=== PATIENT | male | born 2000 | race Caucasian/White ===

== ENCOUNTER 2022-03-05 10:22 | Outpatient (CLI) | payer BC, SELFPAY ==
--- NOTE | ~2022-03-05 | US_ITS ---
US breast BI complete 03/05/2022 10:50 Indication: Left breast swelling Procedure: High-resolution complete bilateral breast ultrasound including all 4 quadrants in the suba reolar locations. Comparison: No prior studies for comparison. Findings: Right breast: Normal heterogeneous echotexture without focal solid or cystic mass. Left breast: There the nipple there is a bilobed cyst measuring 12 x 4 x 10 mm with dependent debris. This is located in the subcutaneous tissues. Impression: 1: Subcutaneous left breast mass near the left nipple in the area of palpable concern, likely benign. This may represent a sebaceous cyst. BI-RADS CATEGORY 3-PROBABLY BENIGN FINDING RECOMMENDATION: 6 month follow up recommended. Reviewed, dictated and finalized at location A. Impression: 1: Subcutaneous left breast mass near the left nipple in the area of palpable c oncern, likely benign. This may represent a sebaceous cyst. BI-RADS CATEGORY 3-PROBABLY BENIGN FINDING RECOMMENDATION: 6 month follow up recommended.
== END 2022-03-05 10:23 | disposition home or self-care (01) ==
PROVIDERS: PCP Nurse Practitioner Family; Visit Provider Nurse Practitioner Family
DX: N63.20 Unspecified lump in the left breast, unspecified quadrant (principal)
CPT/HCPCS: 76641

== ENCOUNTER 2022-08-22 09:53 | Emergency (ER) | payer BC, SELFPAY ==
[2022-08-22 09:53] VITALS: BP 133/18; PULSE 84; RESP 16; TEMP 36.6; O2SAT 98
[2022-08-22 09:54] VITALS: BP 133/84; PULSE 84; RESP 16; TEMP 36.6; O2SAT 98
--- NOTE | 2022-08-22 10:20 | ED.GENADULT ---
HPI - General Adult General Chief complaint: Skin/Abscess/Foreign Body Stated complaint: rash Source: patient Mode of arrival: ambulatory Limitations: no limitations History of Present Illness HPI narrative: Patient started with vesicular crusty dried rash his upper lip on the right side of his nares yesterday. Says is painful 5/10 he has taken Tylenol and ibuprofen for the pain. Denies any ear pain problems hearing or seeing. Denies any sore throat. Denies any other symptoms. he has never had these symptoms before. Past medical history noncontributory Related Data Allergies Allergy/AdvReac Type Severity Reaction Status Date / Time azithromycin Allergy Mild Rash Verified 08/22/22 09:57 cefdinir Allergy Mild Rash Verified 08/22/22 09:57 Penicillins Allergy Mild Rash Verified 08/22/22 09:57 Review of Systems Review of Systems: All systems reviewed & are unremarkable except as noted in HPI and below Constitutional: Constitutional: Reports no additional constitutional complaints and Denies fever(s) Eyes: Eyes: Reports no additional eye complaints and Denies change in vision ENT: Reports system reviewed and no additional complaints, except as documented, Denies nasal congestion and Denies sore throat Cardiovascular: Cardiovascular: Reports as per HPI Respiratory: Respiratory: Reports no additional respiratory complaints Gastrointestinal: Gastrointestinal: Reports no additional gastrointestinal complaints Genitourinary: Genitourinary: Reports no additional male genitourinary complaints and Denies genital lesions Musculoskeletal: Musculoskeletal: Reports no additional musculoskeletal complaints Integumentary/Breasts: Skin/Breast: Reports system reviewed and no additional complaints, except as docu and Reports as per HPI Neurologic: Reports system reviewed and no additional complaints, except as documented Exam Const: General: healthy appearing Nutritional Appearance: well nourished Orientation/consciousness: patient oriented x3 Limitations: no limitations Other: White male no apparent distress. Eyes conjunctiva pink sclera nonicteric. Face got vesicular rash of his upper lip. Several of vesicles are in groups. Some over have a superficial ulcerations and have crusted over with serous drainage that is dried. Oropharynx clear with moist mucous membranes. Ears TMs are normal. Hearing is grossly normal. Neck is supple no lymphadenopathy. Lungs are clear And heart is regular rate and rhythm without murmurs gallops or rubs. Skin is otherwise clear. Extremities no cyanosis clubbing or edema. Neurological motor sensory grossly intact. Course Vital Signs Vital signs: Vital Signs Temperature 36.6 C 08/22/22 09:53 Pulse Rate 84 08/22/22 09:53 Respiratory Rate 16 08/22/22 09:53 Blood Pressure 133/18 L 08/22/22 09:53 Pulse Oximetry 98 08/22/22 09:53 Oxygen Delivery Room Air 08/22/22 09:53 Temperature 36.6 C 08/22/22 09:54 Pulse Rate 84 08/22/22 09:54 Respiratory Rate 16 08/22/22 09:54 Blood Pressure 133/84 08/22/22 09:54 Pulse Oximetry 98 08/22/22 09:54 Oxygen Delivery Room Air 08/22/22 09:54 Medical Decision Making MDM Narrative Medical decision making narrative: This is most likely herpes infection it was discussed with him that we would start him on an antiviral valacyclovir 1000 mg 3 times a day for 10 days. And that we also would start him on Bactrim DS twice a day for 7 days to prevent a secondary Bacterial infection if he does not already have 1 now. Differential Diagnosis Differential Diagnosis: impetigo, cellulitis, herpes simplex, herpes zoster, [place] Bowden syndrome. Vital Signs Vital Signs: Vital Signs Temperature 36.6 C 08/22/22 09:53 Pulse Rate 84 08/22/22 09:53 Respiratory Rate 16 08/22/22 09:53 Blood Pressure 133/18 L 08/22/22 09:53 Pulse Oximetry 98 08/22/22 09:53 Oxygen Delivery Room Air 08/22/22 09:53 Tem
== END 2022-08-22 10:47 | disposition home or self-care (01) ==
PROVIDERS: Emergency Provider Emergency Medicine; PCP Nurse Practitioner Family
DX: B00.1 Herpesviral vesicular dermatitis (principal); L01.00 Impetigo, unspecified
CPT/HCPCS: 99283

== ENCOUNTER 2022-08-26 09:54 | Outpatient (CLI) | payer BC, SELFPAY ==
--- NOTE | ~2022-08-26 | US_ITS ---
EXAMINATION: US scrotum doppler DATE: 08/26/2022 10:27 INDICATION: Left scrotal pain TECHNIQUE: Testicular sonogram utilizing grayscale and Doppler COMPARISON: None. FINDINGS: The right testis measures 5.3 x 2.6 x 2.3 cm. The left testis measures 5.3 x 3.2 x 2.3 cm. Symmetric normal grayscale appearance to both testes. There is normal vascular flow to both testes. The right e pididymis is normal with normal vascular flow. The left epididymis is normal with normal vascular suzie w. There is no varicocele. Small left hydrocele. IMPRESSION: 1. Small left hydrocele. Otherwise normal bilateral testes and epididymides. Reviewed, dictated and finalized at location L. [facility]
== END 2022-08-26 09:55 | disposition home or self-care (01) ==
LOC: CHSIMG 09:56
PROVIDERS: PCP Family Medicine; Visit Provider Registered Nurse
DX: N50.819 Testicular pain, unspecified (principal); N43.3 Hydrocele, unspecified
CPT/HCPCS: 76870; 93976